=== PATIENT | male | born 1950 | race Caucasian/White ===

== ENCOUNTER 2024-06-28 18:05 | Emergency (ER) | payer MEDICARE, OTHER, SELFPAY ==
[2024-06-28 18:40] VITALS: BP 159/74; PULSE 53; RESP 16; TEMP 36.4; O2SAT 98; BMI 27.0
[2024-06-28] MEDS: MECLIZINE HCL 12.5 MG TABLET 50 MG PO (19:11)
--- NOTE | 2024-06-28 20:59 | PC.NURSE ---
This RN checks on patient in waiting room. He is alert and reports slight improvement after medication administration. Provider Niki made aware.
--- NOTE | 2024-06-28 21:00 | DI.CT.S_ITS ---
PROCEDURE: CT HEAD/BRAIN WO CON INDICATIONS: Sudden dizziness. TECHNIQUE: Noncontrast 4.5 mm thick angled axial sections acquired from the foramen magnum to the vertex, with coronal and sagittal reformats. For radiation dose reduction, the following was used: automated exposure control, adjustment of mA and/or kV according to patient size. COMPARISON: None. FINDINGS: Image quality: Diagnostic. CSF spaces: Basal cisterns are patent. No extra-axial fluid collections. Ventricles are normal in size and shape. Brain: No midline shift. No intracranial masses or hemorrhage. Romano-white matter interface is normal. Skull and face: Calvarium and visualized facial bones are intact, without suspicious lesions. Sinuses: Visualized sinuses and mastoids are clear. IMPRESSION: No acute intracranial pathology. Dictated by: Wilbur Goncalves M.D. on 06/28/2024 at 21:41 Approved by: Wilbur Goncalves M.D. on 06/28/2024 at 21:42
--- NOTE | 2024-06-28 21:00 | DI.CT.S_ITS ---
PROCEDURE: CT ANGIO HEAD AND NECK INDICATIONS: Sudden dizziness. TECHNIQUE: After the administration of intravenous contrast, 1 mm thick sections acquired from the aortic arch through the [place]. 3-dimensional xwdhnuf-zfaaanjyc-ajrteahjid (MIP) and/or volume rendering reformats were acquired of the central intracranial vasculature and neck separately. For radiation dose reduction, the following was used: automated exposure control, adjustment of mA and/or kV according to patient size. COMPARISON: None. FINDINGS: Image quality: Diagnostic. BRAIN: Please refer to same day CT of the head HEAD CT ANGIOGRAPHY: Anterior circulation: Intracranial internal carotid arteries are normal in size and flow with atherosclerotic calcifications. The flow within the paired anterior cerebral arteries is normal and symmetric. The flow within the middle cerebral arteries is normal and symmetric. The anterior communicating artery is seen. No aneurysms are seen. Posterior circulation: Visualized portions of the vertebral arteries demonstrate normal caliber, and join to form a normal appearing basilar artery. Flow within the posterior cerebral arteries is normal and symmetric. No aneurysms are seen. NECK CT ANGIOGRAPHY: Carotid system: The great vessels demonstrate a conventional anatomy as they arise from the aortic arch. The origins of the common carotid arteries appear patent. The common carotid arteries demonstrate normal caliber and courses. The bifurcation regions are widely patent on the left and mildly narrowed on the right, less than 50%. The internal carotid arteries demonstrate normal calibers and courses. Posterior circulation: The origins of the vertebral arteries both appear widely patent. The more superior extracranial portions of both vertebral arteries also demonstrate normal courses and calibers. They join to form a normal appearing basilar artery. Soft tissues: Visualized neck soft tissues demonstrate no suspicious abnormalities. Bones: No suspicious bony lesions. Visualized cervical spine appears normally aligned. Degenerative changes of the spine. IMPRESSION: No significant intracranial arterial abnormality is seen. No significant abnormality is seen within the arteries of the neck. Any quantitative measurements of stenosis were performed using NASCET criteria. Dictated by: Wilbur Goncalves M.D. on 06/28/2024 at 21:42 Approved by: Wilbur Goncalves M.D. on 06/28/2024 at 21:47
[2024-06-28 21:30] LABS: Add Manual Diff / Slide Review NO; Basophils Absolute Auto 100 /uL (0-100); Basophils Percent Auto 0.8 % (0-2); Eosinophils Absolute Auto 0 /uL (0-450); Eosinophils Percent Auto 0.2 % (2-4); Hematocrit 46.1 % (41-53); Hemoglobin 15.6 g/dL (13.5-17.5); Lymphocytes Absolute Auto 1300 /uL (1100-4500); Mean Corpuscular HGB Conc 33.7 % (30-36); Mean Corpuscular Hemoglobin 32.8 PG (26-34); Mean Corpuscular Volume 97.4 fL (80-100); Monocytes Absolute Auto 300 /uL (0-900); Neutrophils Absolute Auto 5300 /uL (1500-7000); Platelet Count 244 X10^3/uL (150-400); Red Blood Cell Count 4.74 X10^6/uL (4.5-5.9); Red Cell Distribution Width 13.1 % (11.6-14.8)
[2024-06-28 21:46] LABS: Prothrombin Time 11.8 SECONDS (9.4-12.5)
[2024-06-28 21:49] LABS: PTT Partial Thromboplastin Tim 34 SECONDS (25.1-36.5)
[2024-06-28 21:51] LABS: Alanine Aminotransferase 24 IU/L (<50); Albumin 4.6 g/dL (3.5-5.0); Albumin Globulin Ratio 1.6 (1.0-2.8); Alkaline Phosphatase 72 U/L (38-126); Aspartate Aminotransferase 25 IU/L (17-59); BUN Creatinine Ratio 22.4 (6-22); Bilirubin Total 0.7 mg/dL (0.2-1.3); Blood Urea Nitrogen 19 mg/dL (9-20); Calcium 9.3 mg/dL (8.4-10.2); Carbon Dioxide 25 mmol/L (22-32); Chloride 100 mmol/L (98-107); Estimated Glomerular Filt Rate > 60 mL/min (>60); Globulin 2.9 g/dL (1.7-4.1); Glucose 139 mg/dL (80-110); HEMOLYSIS < 15 (0-50); Potassium 4.3 mmol/L (3.4-5.1); Sodium 134 mmol/L (137-145); Total Protein 7.5 g/dL (6.3-8.2)
[2024-06-28 22:36] VITALS: BP 145/69; PULSE 56; RESP 17; O2SAT 97
[2024-06-28 23:13] VITALS: BP 154/72; PULSE 54; RESP 17; O2SAT 100
--- NOTE | 2024-06-28 23:21 | ED_ITS ---
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 Around 3:00 p.m. started having progressively worse vertigo symptoms particularly when lying backwards or moving his head quickly from side to side or particularly with extension flexion. Patient did have some nausea and vomiting with this. States has not had similar symptoms in the past denies fevers or chills no headache, no vision changes no difficulty with speech, no numbness tingling or weakness, no loss of bowel or bladder control. Other than vertigo symptoms no other weakness or difficulty with movement of extremities. Denies any chest pain or shortness of breath. No other issues with bowel movements or urination. Patient states no daily medications, denies any major surgeries. No known drug allergies no regular tobacco, alcohol or recreational drugs. Related Data Previous Rx's Medication Instructions Recorded meclizine 25 mg chewable tablet 25 mg PO QID PRN vertigo #20 tabs 06/28/24 Allergies Allergy/AdvReac Type Severity Reaction Status Date / Time No Known Drug Allergies Allergy Verified 06/28/24 18:43 Review of Systems Review of Systems ROS Unobtainable: All systems reviewed & are unremarkable except as noted in HPI and below Patient History Social History Smoking Status: Never smoker Smoking Status: Never smoker Substance Use Type: does not use Exam Narrative Exam Narrative: GEN: well nourished, well appearing male, alert and oriented x 3, patient appears to be in see that kit 0 mild distress. HEENT: Atraumatic, pupils are equal round reactive to light, extraocular movements are intact, nares are clear, TMs are mildly retracted, mild fluid, there is no conjunctival pallor. Throat is clear without any exudates, erythema, tonsillar enlargement or uvular deviation, no facial droop HEART: Regular rate and rhythm without murmur, clicks, rubs. No carotid bruits, pulses are equal in upper and lower extremities LUNGS:Lungs clear to auscultation, no wheezes, rales, crackles, chest moves symmetrically ABD:bowel sounds normal, soft, non-tender, no guarding, rebound, rigidity, no masses noted, no hepatosplenomegaly :No CVA tenderness MSCL: Non-tender, no muscle atrophy, muscles strength 5/5 upper and lower extremities, full range of motion, normal gait NEURO:CN 2-12 intact, sensation normal, finger nose finger test normal, heel ontiveros test normal Initial Vital Signs Initial Vital Signs: Vital Signs Temperature 97.6 F 06/28/24 18:40 Pulse Rate 53 L 06/28/24 18:40 Respiratory Rate 16 06/28/24 18:40 Blood Pressure 159/74 H 06/28/24 18:40 Pulse Oximetry 98 06/28/24 18:40 Oxygen Delivery Method Room Air 06/28/24 18:40 Scores NIH Stroke Scale Level of Conciousness: Alert, keenly responsive Ask month/age: Answers both questions correctly. Open/close eyes, close hand: Performs both tasks correctly Best gaze horizontal: Normal Visual wilkes: No visual loss Facial palsy: Normal symetrical movement Left arm drift: No drift for full 10 sec Right arm drift: No drift for full 10 sec Left leg drift: No drift for full 5 sec Right leg drift: No drift for full 5 sec Limb ataxia: Absent Sensory on face/arms/legs: Normal, no sensory loss Best language: No aphasia, normal Dysarthria: Normal Extinction or inattention: No abnormality Total NIH Stroke scale score: 0 Course Orders Ordered: ED Orders 06/28/24 21:00 CT angio head and neck Stat CT head/brain wo con Stat 06/28/24 21:12 Complete Blood Count AUTO DIFF Stat Comprehensive Metabolic Panel Stat PTT Partial Thromboplastin Joe Stat Prothrombin Time INR Stat Discontinued Medications Meclizine HCl (Meclizine Hcl 12.5 Mg Tablet) 50 mg PO NOW ONE Stop: 06/28/24 18:57 Last Admin: 06/28/24 19:11 Dose: 50 mg Documented By: [facility] Vital Signs Vital signs: Vital Signs - 8 hr 06/28/24 22:36 06/28/24 23:13 06/28/24 23:13 Temperature Pulse Rate 56 L 54 L Respiratory Rate 17 17 Blood Pressure 145/69 H 154/72 H Pulse Oximetry 97 100 Oxygen Delivery Method Room Air Room Air 06/28/24 23:25 06/28/24 23:25 06/28/24 23:30 Temperature Pulse Rate 53 L Respiratory Rate 21 Blood Pressure 152/74 H 139/74 Pulse Oximetry 100 Oxygen Delivery Method 06/28/24 23:30 Temperature 97.7 F Pulse Rate 58 L Respiratory Rate 22 Blood Pressure Pulse Oximetry 97 Oxygen Delivery Method Room Air MDM - Dizziness Lab Data 06/28/24 21:12 06/28/24 21:12 Labs: Lab Results 06/28/24 Range/Units 21:12 WBC 7.0 (4.5-11.0) X10^3/uL RBC 4.74 (4.5-5.9) X10^6/uL Hgb 15.6 (13.5-17.5) g/dL Hct 46.1 (41-53) % MCV 97.4 (80-100) fL MCH 32.8 (26-34) PG MCHC 33.7 (30-36) % RDW 13.1 (11.6-14.8) % Plt Count 244 (150-400) X10^3/uL Neut % (Auto) 76.0 H (50-75) % Lymph % (Auto) 19.0 L (25-40) % [place] % (Auto) 4.0 (3-14) % Eos % (Auto) 0.2 L (2-4) % Baso % (Auto) 0.8 (0-2) % Neut # (Auto) 5300 (8050-0988) /uL Lymph # (Auto) 1300 (2665-7202) /uL [place] # (Auto) 300 (0-900) /uL Eos # (Auto) 0 (0-450) /uL Baso # (Auto) 100 (0-100) /uL PT 11.8 (9.4-12.5) SECONDS INR 1.0 (0.9-1.3) APTT 34 (25.1-36.5) SECONDS Sodium 134 L (137-145) mmol/L Potassium 4.3 (3.4-5.1) mmol/L Chloride 100 (98-107) mmol/L Carbon Dioxide 25 (22-32) mmol/L BUN 19 (9-20) mg/dL Creatinine 0.85 (0.66-1.25) mg/dL Estimated GFR > 60 (>60) mL/min BUN/Creatinine Ratio 22.4 H (6-22) Glucose 139 H (80-110) mg/dL Calcium 9.3 (8.4-10.2) mg/dL Total Bilirubin 0.7 (0.2-1.3) mg/dL AST 25 (17-59) IU/L ALT 24 (<50) IU/L Alkaline Phosphatase 72 (38-126) U/L Total Protein 7.5 (6.3-8.2) g/dL Albumin 4.6 (3.5-5.0) g/dL Globulin 2.9 (1.7-4.1) g/dL Albumin/Globulin Ratio 1.6 (1.0-2.8) Imaging Data CT scan - head: Radiologist's Impression: Shamar Villalobos??74??M??1950 ? Allergy/Adv: No Known Drug Allergies Close Head/Neck CTA (Signed) Wilbur Goncalves - 06/28/[address] (Signed) Wilbur Goncalves - 06/28/24 Launch?[place] [address] CT Scan Report Signed Patient: Shamar Villalobos MR#: [id number] : 1950 Acct:[id number] Age/Sex: 74 / M Date of Service: 06/28/24 Loc: ED Accession Number: [id number] Procedure: CT head/brain wo con Ordering Provider: Roxy Prince D.O. PROCEDURE: CT HEAD/BRAIN WO CON INDICATIONS: Sudden dizziness. TECHNIQUE: Noncontrast 4.5 mm thick angled axial sections acquired from the foramen magnum to the vertex, with coronal and sagittal reformats. For radiation dose reduction, the following was used: automated exposure control, adjustment of mA and/or kV according to patient size. COMPARISON: None. FINDINGS: Image quality: Diagnostic. CSF spaces: Basal cisterns are patent. No extra-axial fluid collections. Ventricles are normal in size and shape. Brain: No midline shift. No intracranial masses or hemorrhage. Romano-white matter interface is normal. Skull and face: Calvarium and visualized facial bones are intact, without suspicious lesions. Sinuses: Visualized sinuses and mastoids are clear. IMPRESSION: No acute intracranial pathology. Dictated by: Wilbur Goncalves M.D. on 06/28/2024 at 21:41 Approved by: Wilbur Goncalves M.D. on 06/28/2024 at 21:42 CTA - brain/neck: Radiologist's Impression: [address] [address] [address] Scan Report Signed Patient: Shamar Villalobos MR#: [id number] : 1950 Acct:[id number] Age/Sex: 74 / M Date of Service: 06/28/24 Loc: ED Accession Number: [id number] Procedure: CT angio head and neck Ordering Provider: Roxy Prince D.O. PROCEDURE: CT ANGIO HEAD AND NECK INDICATIONS: Sudden dizziness. TECHNIQUE: After the administration of intravenous contrast, 1 mm thick sections acquired from the aortic arch through the [place]. 3-dimensional mnojcsz-dtaxfjhkr-rjerajhhvx (MIP) and/or volume rendering reformats were acquired of the central intracranial vasculature and neck separately. For radiation dose reduction, the following was used: automated exposure control, adjustment of mA and/or kV according to patient size. COMPARISON: None. FINDINGS: Image quality: Diagnostic. BRAIN: Please refer to same day CT of the head HEAD CT ANGIOGRAPHY: Anterior circulation: Intracranial internal carotid arteries are normal in size and flow with atherosclerotic calcifications. The flow within the paired anterior cerebral arteries is normal and symmetric. The flow within the middle cerebral arteries is normal and symmetric. The anterior communicating artery is seen. No aneurysms are seen. Posterior circulation: Visualized portions of the vertebral arteries demonstrate normal caliber, and join to form a normal appearing basilar artery. Flow within the posterior cerebral arteries is normal and symmetric. No aneurysms are seen. NECK CT ANGIOGRAPHY: Carotid system: The great vessels demonstrate a conventional anatomy as they arise from the aortic arch. The origins of the common carotid arteries appear patent. The common carotid arteries demonstrate normal caliber and courses. The bifurcation regions are widely patent on the left and mildly narrowed on the right, less than 50%. The internal carotid arteries demonstrate normal calibers and courses. Posterior circulation: The origins of the vertebral arteries both appear widely patent. The more superior extracranial portions of both vertebral arteries also demonstrate normal courses and calibers. They join to form a normal appearing basilar artery. Soft tissues: Visualized neck soft tissues demonstrate no suspicious abnormalities. Bones: No suspicious bony lesions. Visualized cervical spine appears normally aligned. Degenerative changes of the spine. IMPRESSION: No significant intracranial arterial abnormality is seen. No significant abnormality is seen within the arteries of the neck. Any quantitative measurements of stenosis were performed using NASCET criteria. Dictated by: Wilbur Goncalves M.D. on 06/28/2024 at 21:42 Approved by: Wilbur Goncalves M.D. on 06/28/2024 at 21:47 MDM Narrative Medical decision making narrative: [age] year old with vertigo-like symptoms gradual onset starting this afternoon patient had had a massage but did not have any massage activity of his neck. Labs show white count of 7 hemoglobin of 15.6 platelets of 244. Coags are negative sodium is 134 potassium 4.3 chloride 100 CO2 is 25 with a BUN 19 creatinine 0.85 glucose is 139 LFTs are negative. Head CT shows no acute change. Head and neck angio shows no acute intracranial abnormality and no acute abnormality in the arteries of the neck. No aneurysms noted. Bifurcation regions are widely pain in the left and mildly narrowed in the right less than 50%. NIH is 0 Patient received meclizine. Patient is feeling improved currently. Still has some mild symptoms. On examination acute changes no acute neurologic changes after discussion CVA fell low in the differential and patient wishes for discharge home. Discussed need for follow up and return precautions. Discharge Plan Departure Patient Disposition: Home Clinical Impression: Vertigo Instructions: DI for Vertigo Activity Restrictions/Additional Instructions: Please follow-up for recheck if your symptoms are not improving. Can follow up with primary another alternative is ENT if your symptoms are persistent but mild. You can take meclizine 50 mg every 6 hours as needed. Printed prescription is included. Please return for severe headaches, rapidly worsening symptoms, difficulty with speech, movement, lightheadedness or passing out, new chest pain or shortness of breath, persistent vomiting or other new or concerning changes. Prescriptions: New meclizine 25 mg tablet,chewable 25 mg PO QID PRN (Reason: vertigo) Qty: 20 0RF Referrals: Geovanny Spaulding MD [Physician] - Stand Alone Forms: Patient Portal/API
[2024-06-28 23:25] VITALS: BP 152/74; PULSE 53; RESP 21; O2SAT 100
[2024-06-28 23:30] VITALS: BP 139/74; PULSE 58; RESP 22; TEMP 36.5; O2SAT 97
== END 2024-06-28 23:57 | disposition home or self-care (01) ==
PROVIDERS: Emergency Provider Emergency Medicine
DX: R42 Dizziness and giddiness (principal); R11.2 Nausea with vomiting, unspecified
CPT/HCPCS: 36415; 70450; 70496; 70498; 80053; 85025; 85610; 85730; 99284; Q9967